=== PATIENT | male | born 1960 | race Caucasian/White ===

== ENCOUNTER 2021-10-16 08:59 | Outpatient (CLI) | payer MEDICARE, SELFPAY ==
--- NOTE | ~2021-10-16 | MR_ITS ---
EXAMINATION: MR lumbar spine wo [facility] EXAM DATE: 10/16/2021 12:40 INDICATION: Back pain or radiculopathy, prior surgery. TECHNIQUE: Multi-sequential, multiplanar MR images of the lumbar spine were obtained without contrast . Sagittal T1, T2, T2 fat saturation images. Axial T2 weighted images. There is no prior study for comparison. FINDINGS: There is moderate to severe disc disease at all thoracolumbar levels. Mild diffuse loss of thoracolumbar vertebral body heights, with edema at the left side of the L3-4 endplates which could b e acute or subacute mild compressions, the others appear chronic. There is 2-3 mm retrolisthesis L3 o n L4 and L4 on L5, 5 mm retrolisthesis L5 on S1. No spondylolysis suspected. The conus medullaris ter minates at the L1/2 level and has normal signal intensity and morphology. Level by level evaluation: T12-L1: Disc does not extend beyond the endplate margin. Facet arthropathy: None. Neural foraminal stenosis: No stenosis. Central canal stenosis: No stenosis. L1-L2: There is a mild diffuse disc bulge. Facet arthropathy: Mild. Neural foraminal stenosis: No stenosis. Central canal stenosis: No stenosis. L2-L3: There is a mild to moderate diffuse disc bulge. Facet arthropathy: Mild to moderate. Neural foraminal stenosis: No stenosis. Central canal stenosis: Mild. L3-L4: There is a large diffuse disc bulge with superimposed central protrusion. Facet arthropathy: Moderate to severe. Ligamentum flavum enlargement. Neural foraminal stenosis: Moderate left, mild to moderate right. Central canal stenosis: Severe, nerve root redundancy above. L4-L5: There is a moderate to large diffuse disc bulge. Facet arthropathy: Moderate to severe. Neural foraminal stenosis: Moderate bilateral. Central canal stenosis: Moderate. L5-S1: There is a moderate diffuse disc bulge. Facet arthropathy: Moderate. Neural foraminal stenosis: Moderate left, mild to moderate right. Central canal stenosis: Mild to moderate. IMPRESSION: 1. L3-4 severe central canal stenosis. 2. Diffuse loss of thoracolumbar vertebral body heights with edema at the L3-4 endplates suggesting acute or subacute component. 3. Grade 1 retrolisthesis L3 on L4, L4 on L5 and L5 on S1. Reviewed, dictated and finalized at location G. 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
--- NOTE | ~2021-10-16 | XR_ITS ---
XR wrist LT min 3V 10/16/2021 11:01 INDICATION: Left wrist pain PROCEDURE: 4 views left wrist COMPARISON: No prior studies for comparison. FINDINGS: Fracture, dislocation or subluxation is not identified. The soft tissues appear within norm al limits. No foreign bodies are identified. IMPRESSION: 1: NO ACUTE BONE OR JOINT ABNORMALITY IDENTIFIED. Reviewed, dictated and finalized at location A. 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
== END 2021-10-16 09:00 ==
PROVIDERS: PCP Internal Medicine; Visit Provider Internal Medicine
DX: M54.50 Low back pain, unspecified (principal); M47.816 Spondylosis without myelopathy or radiculopathy, lumbar region; M48.061 Spinal stenosis, lumbar region without neurogenic claudication; R29.890 Loss of height; M79.89 Other specified soft tissue disorders; M43.16 Spondylolisthesis, lumbar region
CPT/HCPCS: 72148; 73110

== ENCOUNTER 2023-04-09 11:15 | Emergency (ER) | payer OTHER, SELFPAY ==
[2023-04-09 11:35] VITALS: BP 153/116; PULSE 70; RESP 18; TEMP 36.6; O2SAT 100
--- NOTE | 2023-04-09 11:58 | ED.GENADULT ---
HPI - General Adult General Chief complaint: Eye Problems Stated complaint: lt eye irritation Time Seen by Provider: 04/09/23 12:00 Source: patient Mode of arrival: ambulatory Limitations: no limitations History of Present Illness HPI narrative: 8-year-old male patient presents to the [facility] with complaints of left eye irritation. Patient states that he his left eye with a a bath tab on a Monday night however he noticed that the pain was improving throughout the night and into the next morning however yesterday they went to an old house to get cleaned up of their parents and he was messing around with a ceiling fan and thinks that some of the dust or something might have gotten in his eye. Patient states he is not having any vision changes but has pain to the eye sensitivity to the light and feels like there is some type of glass or grittiness into the eye. Related Data Home Medications Medication Instructions Recorded Confirmed amlodipine 10 mg tablet 10 mg PO DAILY 04/09/23 04/09/23 bupropion HCl 150 mg 24 hr tablet, 150 mg PO DAILY 04/09/23 04/09/23 extended release omeprazole 20 mg capsule,delayed 20 mg PO DAILY 04/09/23 04/09/23 release Allergies Allergy/AdvReac Type Severity Reaction Status Date / Time No Known Allergies Allergy Verified 04/09/23 11:40 Review of Systems Review of Systems: CONSTITUTIONAL: Denies fever, chills, or sweats. EYES: Denies visual changes, Positive left eyeredness, and clear discharge. ENT: Denies rhinorrhea, congestion, sore throat, or otalgia. CARDIOVASCULAR: Denies chest pain, palpitations, or edema. RESPIRATORY: Denies cough or dyspnea. GASTROINTESTINAL: Denies abdominal pain, nausea, vomiting, or diarrhea. GENITOURINARY: Denies dysuria or hematuria. SKIN: Denies rash or itching. MUSCULOSKELETAL: Denies back pain, joint pain, or myalgia. NEUROLOGIC: Denies headache, numbness, or weakness. PSYCHIATRIC: Denies anxiety or depression. Exam Narrative: GENERAL: Well-appearing, well-nourished, and in no acute distress. HEAD: Normocephalic, atraumatic. EYES: PERRLA and EOMI. patient has erythema noted to the sclera and sensitivity to light. Patient's eye was examined under the Wood's lamp and there is a small of corneal abrasion noted to the 6:00 a.m. area of the cornea. ENT: Nares clear, no rhinorrhea or epistaxis. Mucous membranes moist. NECK: Supple. No lymphadenopathy CHEST: Clear to auscultation. No respiratory distress. HEART: Regular rate and rhythm. No murmur heard. Normal peripheral pulses. ABDOMEN: Soft, nontender, nondistended, normal active bowel sounds. EXTREMITIES: Normal range of motion. No edema. SKIN: Warm, dry, no rash. NEURO: No focal deficits. Alert and oriented x3. Course Course Level of Care: Express Care Visit Vital Signs Vital signs: Vital Signs Temperature 36.6 C 04/09/23 11:35 Pulse Rate 70 04/09/23 11:35 Respiratory Rate 18 04/09/23 11:35 Blood Pressure 153/116 H 04/09/23 11:35 Pulse Oximetry 100 04/09/23 11:35 Oxygen Delivery Room Air 04/09/23 11:35 Temperature 36.6 C 04/09/23 11:35 Pulse Rate 70 04/09/23 11:35 Respiratory Rate 18 04/09/23 11:35 Blood Pressure 153/116 H 04/09/23 11:35 Pulse Oximetry 100 04/09/23 11:35 Oxygen Delivery Room Air 04/09/23 11:35 Vital signs reviewed. The patient has been informed that they may have pre-hypertension or Hypertension based on a BP reading in the department. I recommend that the patient call the primary care provider listed on their discharge instructions or a physician of their choice this week to arrange follow up for further evaluation of possible pre-hypertension or Hypertension Patient we recently had his blood pressure medications adjusted by his primary doctor Medical Decision Making MDM Narrative Medical decision making narrative: Discussed with patient that it does appear to head he has a small corneal abrasion left eye.
== END 2023-04-09 12:00 | disposition home or self-care (01) ==
PROVIDERS: Emergency Provider Nurse Practitioner Family; PCP Internal Medicine
DX: S05.02XA Injury of conjunctiva and corneal abrasion without foreign body, left eye, initial encounter (principal); X58.XXXA Exposure to other specified factors, initial encounter
CPT/HCPCS: 99213; A9270; G0463